=== PATIENT | female | born 1965 | race Caucasian/White ===

== ENCOUNTER 2019-03-06 15:38 | Inpatient (IN) | payer OTHER ==
[2019-03-06] VITALS: BP 112/57; RESP 20
[~2019-03-06] VITALS: Ht 162.6 cm; Wt 70.0 kg
[~2019-03-06 15:38] MED LIST: ALBU8.5H8 INH; ALPR2TAB PO; BUME0.5T2 PO; BUSP15TA3 ORAL; BUSP5TAB2 PO; DIPH50CA30 ORAL; GABA300C16 ORAL; HYDR-4011 PO; LISI-313 PO; METH5SOL3 PO; METO-335 PO; MIRT15TA5 PO; MIRT30TA5 ORAL; NICO-546 TRANSDERM; OLAN5TAB5 PO; SPIR25TA PO
[2019-03-06] MEDS ORDERED: IPRATROPIUM (NEB) 0.5 MG/2.5 ML AMP INH STA (15:46)
[2019-03-06] MEDS ORDERED: predniSONE 20 MG TAB PO STA (15:46)
[2019-03-06] MEDS ORDERED: ALBUTEROL 0.083% (NEB) 2.5 MG/3 ML AMP INH STA (15:46)
[2019-03-06] MEDS ORDERED: SODIUM CHLORIDE 0.9% 1L BAG IV* STA ×2 (17:22→17:51)
[2019-03-06] MEDS ORDERED: CEFEPIME 2GM/50 ML (PMX) 50 ML IVPB STA (17:51)
[2019-03-06] MEDS ORDERED: VANCOMYCIN 1 GM (PMX) 250 ML IVPB ONE (18:00)
[2019-03-06] MEDS ORDERED: NACL 0.9% 3 ML SYG IV SCH (19:00)
[2019-03-06] MEDS ORDERED: ONDANSETRON 4 MG INJ IV PRN ×2 (19:00)
[2019-03-06] MEDS ORDERED: ACETAMINOPHEN 325 MG TAB PO PRN (19:00)
[2019-03-06] MEDS: SOD CHLORIDE 0.9% 1,000 ML IV SCH (19:06)
[2019-03-06] MEDS ORDERED: CEFEPIME 1GM/50 ML (PMX) 50 ML IVPB SCH (21:00)
[2019-03-06] MEDS: FAMOTIDINE 20 MG TAB PO SCH (23:02)
[2019-03-07 00:15] VITALS: Ht 162.6 cm; Wt 70.0 kg
[2019-03-07] MEDS ORDERED: PENDING SANTYL ORDER FOR WOUND CARE XX PRN (01:00)
[2019-03-07] MEDS: SOD CHLORIDE 0.9% 1,000 ML IV SCH (03:43)
[2019-03-07 04:34] VITALS: BP 112/61; RESP 18
[2019-03-07] MEDS: CEFEPIME 1GM/50 ML (PMX) 50 ML IVPB SCH ×2 (06:09→20:10)
[2019-03-07 07:14] VITALS: BP 116/58; PULSE 91; RESP 20
[2019-03-07] MEDS ORDERED: SOD CHLORIDE 0.9% 250 ML IV* ONE (08:31)
[2019-03-07] MEDS: FAMOTIDINE 20 MG TAB PO SCH ×2 (09:00→20:10)
[2019-03-07] MEDS: ALBUTEROL 0.083% (NEB) 2.5 MG/3 ML AMP HHN PRN (09:08)
[2019-03-07] MEDS: METHYLPREDNISOLONE 125 MG INJ IV SCH (09:32)
[2019-03-07] MEDS: ENOXAPARIN 30 MG/0.3 ML SYG SC SCH (09:33)
[2019-03-07] MEDS ORDERED: FUROSEMIDE 40 MG INJ IV ONE (11:00)
[2019-03-07 11:10] VITALS: BP 117/57; PULSE 88; RESP 21
[2019-03-07 15:10] VITALS: BP 119/57; PULSE 89; RESP 19
[2019-03-07 19:10] VITALS: BP 111/57; PULSE 89; RESP 20
[2019-03-08] VITALS (7 sets, daily range): BP systolic 114–135; BP diastolic 52–69; PULSE 85–99; RESP 17–19
[2019-03-08] MEDS: ALBUTEROL 0.083% (NEB) 2.5 MG/3 ML AMP HHN PRN ×2 (00:26→08:45)
[2019-03-08] MEDS: CEFEPIME 1GM/50 ML (PMX) 50 ML IVPB SCH ×2 (08:40→21:14)
[2019-03-08] MEDS: FAMOTIDINE 20 MG TAB PO SCH ×2 (08:40→21:14)
[2019-03-08] MEDS: METHYLPREDNISOLONE 125 MG INJ IV SCH (08:40)
[2019-03-08] MEDS: ENOXAPARIN 30 MG/0.3 ML SYG SC SCH (09:21)
[2019-03-08] MEDS ORDERED: VANCOMYCIN IV PER PHARMACY XX SCH (18:30)
[2019-03-08] MEDS ORDERED: VANCOMYCIN 1.5 GM/NS 250 ML 250 ML IVPB ONE (19:30)
[2019-03-08] MEDS: ALBUTEROL/IPRATROPIUM (NEB) 3 ML AMP HHN SCH (20:13)
[2019-03-08] MEDS: SILVER SULFADIAZINE 1% 25 GM CR TOP SCH (22:43)
[2019-03-08] MEDS: COLLAGENASE 5 GM (UD JAR) TOP SCH (22:43)
[2019-03-09] VITALS (9 sets, daily range): BP systolic 108–150; BP diastolic 53–80; PULSE 90–120; RESP 14–28
[2019-03-09] MEDS: GENTAMICIN 60 MG in SOD CHLORIDE 0.9% 50 ML IVPB SCH ×2 (02:15→22:29)
[2019-03-09] MEDS: COLLAGENASE 5 GM (UD JAR) TOP SCH (09:08)
[2019-03-09] MEDS: ENOXAPARIN 30 MG/0.3 ML SYG SC SCH (09:08)
[2019-03-09] MEDS: SILVER SULFADIAZINE 1% 25 GM CR TOP SCH (09:09)
[2019-03-09] MEDS: ALBUTEROL/IPRATROPIUM (NEB) 3 ML AMP HHN SCH ×3 (10:00→20:08)
[2019-03-09] MEDS ORDERED: FUROSEMIDE 20 MG INJ ONE (12:00)
[2019-03-09] MEDS ORDERED: GENTAMICIN IV PER PHARMACY XX SCH (16:00)
[2019-03-09] MEDS ORDERED: FUROSEMIDE 40 MG INJ IM ONE (16:30)
[2019-03-09] MEDS ORDERED: FUROSEMIDE 40 MG INJ IV ONE (16:30)
[2019-03-09] MEDS: ALBUTEROL 0.083% (NEB) 2.5 MG/3 ML AMP HHN PRN (16:43)
[2019-03-09] MEDS: METHYLPREDNISOLONE 125 MG INJ IV SCH (16:44)
[2019-03-09] MEDS: CEFEPIME 1GM/50 ML (PMX) 50 ML IVPB SCH ×2 (16:56→22:27)
[2019-03-09] MEDS ORDERED: BISACODYL (EC) 5 MG TAB PO ONE ×2 (17:00→20:00)
[2019-03-09] MEDS: PEG/ELECTROLYTES 4L BTL PO ONE ×2 (17:00→21:00)
[2019-03-09] MEDS: VANCOMYCIN 750 MG (PMX) 250 ML IVPB SCH (17:36)
[2019-03-09] MEDS: PANTOPRAZOLE 40 MG INJ IV SCH (17:38)
[2019-03-09] MEDS ORDERED: METHADONE (1 MG/ML 5 ML PO UD SYG) PO SCH (18:30)
[2019-03-09] MEDS: NICOTINE (21 MG/24 HR) PATCH TRANSDERM SCH (19:21)
[2019-03-09] MEDS: morphine 2 MG INJ IV PRN (19:21)
[2019-03-09] MEDS ORDERED: VANCOMYCIN 1 GM 250 ML IVPB SCH (20:00)
[2019-03-09] MEDS ORDERED: PEG/ELECTROLYTES 4L BTL PO ONE (20:00)
[2019-03-10] VITALS (8 sets, daily range): BP systolic 112–145; BP diastolic 56–72; PULSE 90–104; RESP 16–20
[2019-03-10] MEDS: GENTAMICIN 60 MG in SOD CHLORIDE 0.9% 50 ML IVPB SCH ×4 (02:15→15:37)
[2019-03-10] MEDS: VANCOMYCIN 750 MG (PMX) 250 ML IVPB SCH ×2 (04:16→17:22)
[2019-03-10] MEDS: PANTOPRAZOLE 40 MG INJ IV SCH ×2 (06:03→17:20)
[2019-03-10] MEDS: ENOXAPARIN 30 MG/0.3 ML SYG SC SCH (09:00)
[2019-03-10] MEDS: morphine 2 MG INJ IV PRN (10:12)
[2019-03-10] MEDS: ALBUTEROL/IPRATROPIUM (NEB) 3 ML AMP HHN SCH ×3 (10:12→20:00)
[2019-03-10] MEDS: METHYLPREDNISOLONE 125 MG INJ IV SCH (10:12)
[2019-03-10] MEDS: SILVER SULFADIAZINE 1% 25 GM CR TOP SCH (10:17)
[2019-03-10] MEDS: NICOTINE (21 MG/24 HR) PATCH TRANSDERM SCH (10:17)
[2019-03-10] MEDS: COLLAGENASE 5 GM (UD JAR) TOP SCH (10:17)
[2019-03-10] MEDS: CEFEPIME 1GM/50 ML (PMX) 50 ML IVPB SCH ×2 (10:44→20:18)
[2019-03-10] MEDS ORDERED: LIDOCAINE 2% (SDV) 5 ML INJ ONE (13:02)
[2019-03-10] MEDS ORDERED: PROPOFOL 20 ML ONE ×2 (13:02→13:37)
[2019-03-10] MEDS ORDERED: FENTAnyl 50 MCG/ML VIAL ONE (13:03)
[2019-03-10] MEDS ORDERED: ONDANSETRON 4 MG INJ IV PRN (13:30)
[2019-03-10] MEDS: METHADONE 1 MG/ML (ORAL SOLN) PO SCH (17:14)
[2019-03-10] MEDS: ALBUTEROL 0.083% (NEB) 2.5 MG/3 ML AMP HHN PRN (19:29)
[2019-03-10] MEDS ORDERED: GENTAMICIN 60 MG in SOD CHLORIDE 0.9% 50 ML IVPB SCH (22:00)
[2019-03-11] VITALS (7 sets, daily range): BP systolic 115–172; BP diastolic 56–87; PULSE 95–101; RESP 18–20
[2019-03-11] MEDS: GENTAMICIN 60 MG in SOD CHLORIDE 0.9% 50 ML IVPB SCH ×2 (01:17→14:22)
[2019-03-11] MEDS: VANCOMYCIN 750 MG (PMX) 250 ML IVPB SCH ×2 (03:22→15:56)
[2019-03-11] MEDS: ALBUTEROL 0.083% (NEB) 2.5 MG/3 ML AMP HHN PRN ×2 (03:33→12:04)
[2019-03-11] MEDS ORDERED: FUROSEMIDE 20 MG INJ ONE (03:52)
[2019-03-11] MEDS ORDERED: FUROSEMIDE 20 MG INJ IV ONE (04:00)
[2019-03-11] MEDS: PANTOPRAZOLE 40 MG INJ IV SCH ×2 (06:05→17:57)
[2019-03-11] MEDS: ALBUTEROL/IPRATROPIUM (NEB) 3 ML AMP HHN SCH ×3 (08:01→19:58)
[2019-03-11] MEDS ORDERED: METOPROLOL (XL) 25 MG TAB PO SCH (09:00)
[2019-03-11] MEDS: METHYLPREDNISOLONE 125 MG INJ IV SCH (09:50)
[2019-03-11] MEDS: NICOTINE (21 MG/24 HR) PATCH TRANSDERM SCH (09:50)
[2019-03-11] MEDS: CEFEPIME 1GM/50 ML (PMX) 50 ML IVPB SCH ×2 (09:50→20:23)
[2019-03-11] MEDS: LISINOPRIL 5 MG TAB PO SCH (09:51)
[2019-03-11] MEDS: COLLAGENASE 5 GM (UD JAR) TOP SCH (09:53)
[2019-03-11] MEDS: ENOXAPARIN 30 MG/0.3 ML SYG SC SCH (10:02)
[2019-03-11] MEDS: SILVER SULFADIAZINE 1% 25 GM CR TOP SCH (11:22)
[2019-03-11] MEDS: METHADONE 1 MG/ML (ORAL SOLN) PO SCH (11:23)
[2019-03-11] MEDS: METOPROLOL (XL) 25 MG TAB PO SCH ×2 (20:16→20:23)
[2019-03-12] VITALS: BP 121/68; PULSE 98; RESP 19
[2019-03-12] MEDS: GENTAMICIN 60 MG in SOD CHLORIDE 0.9% 50 ML IVPB SCH (01:18)
[2019-03-12] MEDS: ALBUTEROL 0.083% (NEB) 2.5 MG/3 ML AMP HHN PRN (01:25)
[2019-03-12] MEDS: VANCOMYCIN 750 MG (PMX) 250 ML IVPB SCH (03:23)
[2019-03-12 04:00] VITALS: BP 113/67; PULSE 83; RESP 20
[2019-03-12] MEDS: PANTOPRAZOLE 40 MG INJ IV SCH ×2 (05:04→17:37)
[2019-03-12] MEDS: ALBUTEROL/IPRATROPIUM (NEB) 3 ML AMP HHN SCH ×3 (07:46→19:49)
[2019-03-12 07:49] VITALS: BP 120/60; PULSE 88; RESP 18
[2019-03-12] MEDS: CEFEPIME 1GM/50 ML (PMX) 50 ML IVPB SCH ×2 (08:50→21:54)
[2019-03-12] MEDS: SILVER SULFADIAZINE 1% 25 GM CR TOP SCH (08:50)
[2019-03-12] MEDS: COLLAGENASE 5 GM (UD JAR) TOP SCH (08:51)
[2019-03-12] MEDS: METHYLPREDNISOLONE 125 MG INJ IV SCH (08:51)
[2019-03-12] MEDS: NICOTINE (21 MG/24 HR) PATCH TRANSDERM SCH (08:51)
[2019-03-12] MEDS: METOPROLOL (XL) 25 MG TAB PO SCH ×2 (08:52→21:00)
[2019-03-12] MEDS: LISINOPRIL 5 MG TAB PO SCH (08:53)
[2019-03-12] MEDS: ENOXAPARIN 30 MG/0.3 ML SYG SC SCH (08:59)
[2019-03-12] MEDS: METHADONE 1 MG/ML (ORAL SOLN) PO SCH (10:25)
[2019-03-12 11:54] VITALS: BP 122/67; PULSE 64; RESP 18
[2019-03-12 15:36] VITALS: BP 107/61; PULSE 81; RESP 17
[2019-03-12] MEDS: VANCOMYCIN 500 MG (PMX) 100 ML IVPB SCH (17:37)
[2019-03-12 20:00] VITALS: BP 104/64; PULSE 73; RESP 18
[2019-03-13] VITALS: BP 110/68; PULSE 76; RESP 18
[2019-03-13 04:00] VITALS: BP 106/64; PULSE 70; RESP 18
[2019-03-13] MEDS: VANCOMYCIN 500 MG (PMX) 100 ML IVPB SCH ×2 (06:00→18:00)
[2019-03-13] MEDS: PANTOPRAZOLE 40 MG INJ IV SCH ×2 (06:00→17:17)
[2019-03-13 07:42] VITALS: BP 86/49; PULSE 71; RESP 18
[2019-03-13] MEDS: ALBUTEROL/IPRATROPIUM (NEB) 3 ML AMP HHN SCH ×3 (08:30→20:38)
[2019-03-13] MEDS: LISINOPRIL 5 MG TAB PO SCH (09:00)
[2019-03-13] MEDS: METOPROLOL (XL) 25 MG TAB PO SCH ×2 (09:00→21:00)
[2019-03-13] MEDS: CEFEPIME 1GM/50 ML (PMX) 50 ML IVPB SCH ×2 (09:00→21:00)
[2019-03-13] MEDS: METHYLPREDNISOLONE 125 MG INJ IV SCH (09:00)
[2019-03-13] MEDS: COLLAGENASE 5 GM (UD JAR) TOP SCH (09:21)
[2019-03-13] MEDS: SILVER SULFADIAZINE 1% 25 GM CR TOP SCH (09:22)
[2019-03-13] MEDS: NICOTINE (21 MG/24 HR) PATCH TRANSDERM SCH (09:37)
[2019-03-13] MEDS: ENOXAPARIN 30 MG/0.3 ML SYG SC SCH (09:39)
[2019-03-13] MEDS ORDERED: NA POLYST SULFON 15 GM/60 ML BTL PO ONE ×2 (11:00→14:00)
[2019-03-13 11:26] VITALS: BP 113/52; PULSE 70; RESP 20
[2019-03-13] MEDS ORDERED: GENTAMICIN 60 MG in SOD CHLORIDE 0.9% 50 ML IVPB SCH (12:00)
[2019-03-13] MEDS: METHADONE 1 MG/ML (ORAL SOLN) PO SCH (13:25)
[2019-03-13 15:35] VITALS: BP 100/53; PULSE 68; RESP 22
[2019-03-13 20:03] VITALS: BP 93/50; PULSE 71; RESP 18
[2019-03-13] MEDS: ENOXAPARIN 80 MG/0.8 ML SYG SC SCH (21:09)
[2019-03-14 00:12] VITALS: BP 98/54; PULSE 69; RESP 17
[2019-03-14 05:28] VITALS: BP 99/54; PULSE 67; RESP 17
[2019-03-14] MEDS: PANTOPRAZOLE 40 MG INJ IV SCH ×2 (05:42→18:27)
[2019-03-14] MEDS: VANCOMYCIN 500 MG (PMX) 100 ML IVPB SCH (05:42)
[2019-03-14 07:41] VITALS: BP 105/56; PULSE 68; RESP 18
[2019-03-14] MEDS: COLLAGENASE 5 GM (UD JAR) TOP SCH (08:55)
[2019-03-14] MEDS: CEFEPIME 1GM/50 ML (PMX) 50 ML IVPB SCH (08:55)
[2019-03-14] MEDS: METOPROLOL (XL) 25 MG TAB PO SCH ×2 (08:55→21:00)
[2019-03-14] MEDS: NICOTINE (21 MG/24 HR) PATCH TRANSDERM SCH (08:55)
[2019-03-14] MEDS: LISINOPRIL 5 MG TAB PO SCH (08:56)
[2019-03-14] MEDS: METHYLPREDNISOLONE 125 MG INJ IV SCH (08:56)
[2019-03-14] MEDS: SILVER SULFADIAZINE 1% 25 GM CR TOP SCH (08:57)
[2019-03-14] MEDS: ALBUTEROL/IPRATROPIUM (NEB) 3 ML AMP HHN SCH ×3 (09:00→20:50)
[2019-03-14] MEDS: ENOXAPARIN 80 MG/0.8 ML SYG SC SCH ×2 (09:15→20:31)
[2019-03-14] MEDS: METHADONE 10 MG TAB PO SCH (09:40)
[2019-03-14 11:20] VITALS: BP 110/59; PULSE 78; RESP 18
[2019-03-14 16:00] VITALS: BP 118/62; PULSE 73
[2019-03-14] MEDS: CEFTRIAXONE 1 GM/50 ML (PMX) 50 ML IVPB SCH (18:27)
[2019-03-14 20:11] VITALS: BP 98/52; PULSE 66; RESP 17
[2019-03-15 00:10] VITALS: BP 101/76; PULSE 62; RESP 17
[2019-03-15 04:00] VITALS: BP 103/54; PULSE 65; RESP 16
[2019-03-15] MEDS: PANTOPRAZOLE 40 MG INJ IV SCH ×2 (05:02→18:20)
[2019-03-15] MEDS: ALBUTEROL/IPRATROPIUM (NEB) 3 ML AMP HHN SCH ×3 (07:38→19:31)
[2019-03-15 08:19] VITALS: BP 117/56; PULSE 56; RESP 18
[2019-03-15] MEDS: NICOTINE (21 MG/24 HR) PATCH TRANSDERM SCH (08:38)
[2019-03-15] MEDS: COLLAGENASE 5 GM (UD JAR) TOP SCH (08:39)
[2019-03-15] MEDS: METHYLPREDNISOLONE 125 MG INJ IV SCH (08:39)
[2019-03-15] MEDS: METHADONE 10 MG TAB PO SCH (08:40)
[2019-03-15] MEDS: METOPROLOL (XL) 25 MG TAB PO SCH ×2 (08:40→20:35)
[2019-03-15] MEDS: SILVER SULFADIAZINE 1% 25 GM CR TOP SCH (08:41)
[2019-03-15] MEDS: ENOXAPARIN 80 MG/0.8 ML SYG SC SCH ×2 (08:51→20:18)
[2019-03-15 11:49] VITALS: BP 119/58; PULSE 68; RESP 18
[2019-03-15 16:20] VITALS: BP 95/58; PULSE 71; RESP 20
[2019-03-15] MEDS: CEFTRIAXONE 1 GM/50 ML (PMX) 50 ML IVPB SCH (18:20)
[2019-03-15 20:00] VITALS: BP 100/54; PULSE 71; RESP 18
[2019-03-16] VITALS: BP 104/49; PULSE 71; RESP 19
[2019-03-16] MEDS: PANTOPRAZOLE 40 MG INJ IV SCH ×2 (05:05→17:53)
[2019-03-16 07:38] VITALS: BP 99/51; PULSE 70; RESP 20
[2019-03-16] MEDS: ALBUTEROL/IPRATROPIUM (NEB) 3 ML AMP HHN SCH ×3 (08:31→21:08)
[2019-03-16] MEDS: METOPROLOL (XL) 25 MG TAB PO SCH ×2 (09:00→21:17)
[2019-03-16] MEDS: METHADONE 10 MG TAB PO SCH (09:29)
[2019-03-16] MEDS: METHYLPREDNISOLONE 125 MG INJ IV SCH (09:29)
[2019-03-16] MEDS: NICOTINE (21 MG/24 HR) PATCH TRANSDERM SCH (09:31)
[2019-03-16] MEDS: COLLAGENASE 5 GM (UD JAR) TOP SCH (09:32)
[2019-03-16] MEDS: ENOXAPARIN 80 MG/0.8 ML SYG SC SCH ×2 (11:03→21:39)
[2019-03-16 11:14] VITALS: BP 111/54; PULSE 74; RESP 20
[2019-03-16] MEDS: SOD FERRIC GLUC COMPLX 125 MG in SOD CHLORIDE 0.9% 100 ML IVPB SCH (13:21)
[2019-03-16 15:42] VITALS: BP 118/54; PULSE 63; RESP 20
[2019-03-16] MEDS: CEFTRIAXONE 1 GM/50 ML (PMX) 50 ML IVPB SCH (17:53)
[2019-03-16] MEDS: SILVER SULFADIAZINE 1% 25 GM CR TOP SCH (17:54)
[2019-03-16 23:47] VITALS: BP 116/58; PULSE 79; RESP 20
[2019-03-17] MEDS: 1/2 NS + KCL 20 MEQ 1,000 ML IV SCH ×2 (02:42→17:05)
[2019-03-17] MEDS: ALBUTEROL 0.083% (NEB) 2.5 MG/3 ML AMP HHN PRN (03:06)
[2019-03-17 04:32] VITALS: BP 117/55; PULSE 71; RESP 20
[2019-03-17] MEDS: PANTOPRAZOLE 40 MG INJ IV SCH ×2 (06:18→17:04)
[2019-03-17 07:18] VITALS: BP 110/55; PULSE 69; RESP 20
[2019-03-17] MEDS: METHADONE 10 MG TAB PO SCH (08:54)
[2019-03-17] MEDS: NICOTINE (21 MG/24 HR) PATCH TRANSDERM SCH (08:55)
[2019-03-17] MEDS: METHYLPREDNISOLONE 40 MG INJ IV SCH (08:55)
[2019-03-17] MEDS: SILVER SULFADIAZINE 1% 25 GM CR TOP SCH (08:56)
[2019-03-17] MEDS: METOPROLOL (XL) 25 MG TAB PO SCH ×2 (08:56→21:00)
[2019-03-17] MEDS: COLLAGENASE 5 GM (UD JAR) TOP SCH (08:56)
[2019-03-17] MEDS: ENOXAPARIN 80 MG/0.8 ML SYG SC SCH (09:09)
[2019-03-17] MEDS: ALBUTEROL/IPRATROPIUM (NEB) 3 ML AMP HHN SCH ×3 (10:30→20:54)
[2019-03-17 10:59] VITALS: BP 113/53; PULSE 76; RESP 20
[2019-03-17] MEDS: SOD FERRIC GLUC COMPLX 125 MG in SOD CHLORIDE 0.9% 100 ML IVPB SCH (13:15)
[2019-03-17] MEDS: CEFTRIAXONE 1 GM/50 ML (PMX) 50 ML IVPB SCH (15:44)
[2019-03-17 15:57] VITALS: BP 139/64; PULSE 78; RESP 20
[2019-03-17] MEDS: PHYTONADIONE (1 MG/ML PO SYG) PO SCH (19:04)
[2019-03-17 20:00] VITALS: BP 123/57; PULSE 81; RESP 20
[2019-03-18] VITALS: BP 110/59; PULSE 77; RESP 19
[2019-03-18] MEDS: ENOXAPARIN 80 MG/0.8 ML SYG SC SCH ×2 (00:35→10:05)
[2019-03-18] MEDS: ALBUTEROL 0.083% (NEB) 2.5 MG/3 ML AMP HHN PRN (01:16)
[2019-03-18 04:00] VITALS: BP 104/53; PULSE 80; RESP 18
[2019-03-18] MEDS: PANTOPRAZOLE 40 MG INJ IV SCH ×2 (06:01→17:59)
[2019-03-18] MEDS: 1/2 NS + KCL 20 MEQ 1,000 ML IV SCH ×2 (06:01→10:12)
[2019-03-18] MEDS: METOPROLOL (XL) 25 MG TAB PO SCH ×2 (09:00→21:56)
[2019-03-18] MEDS: ALBUTEROL/IPRATROPIUM (NEB) 3 ML AMP HHN SCH ×3 (09:48→19:57)
[2019-03-18] MEDS: METHADONE 10 MG TAB PO SCH (10:00)
[2019-03-18] MEDS: NICOTINE (21 MG/24 HR) PATCH TRANSDERM SCH (10:01)
[2019-03-18] MEDS: COLLAGENASE 5 GM (UD JAR) TOP SCH (10:01)
[2019-03-18] MEDS: SILVER SULFADIAZINE 1% 25 GM CR TOP SCH (10:01)
[2019-03-18] MEDS: METHYLPREDNISOLONE 40 MG INJ IV SCH (10:01)
[2019-03-18] MEDS: PHYTONADIONE (1 MG/ML PO SYG) PO SCH (10:11)
[2019-03-18 11:24] VITALS: BP 110/45; PULSE 72; RESP 18
[2019-03-18] MEDS: SOD FERRIC GLUC COMPLX 125 MG in SOD CHLORIDE 0.9% 100 ML IVPB SCH (13:38)
[2019-03-18 15:12] VITALS: BP 131/62; PULSE 82; RESP 20
[2019-03-18] MEDS: CEFTRIAXONE 1 GM/50 ML (PMX) 50 ML IVPB SCH (16:46)
[2019-03-18 20:00] VITALS: BP 113/61; PULSE 76; RESP 19
[2019-03-19] VITALS (64 sets, daily range): BP systolic 99–152; BP diastolic 16–77; PULSE 60–80; RESP 9–25
[2019-03-19] MEDS: 1/2 NS + KCL 20 MEQ 1,000 ML IV SCH (01:48)
[2019-03-19] MEDS ORDERED: DEXTROSE 50% 50 ML SYRINGE ONE (04:09)
[2019-03-19] MEDS ORDERED: GLUCOSE GEL 15 GRAM TUBE ONE (04:12)
[2019-03-19] MEDS ORDERED: GLUCAGON 1 MG INJ ONE (04:13)
[2019-03-19] MEDS ORDERED: DEXTROSE 5%-0.45% NACL 1,000 ML IV SCH (05:00)
[2019-03-19] MEDS ORDERED: NA BICARBONATE 8.4% 50 ML SYG IV ONE ×2 (05:00→10:00)
[2019-03-19] MEDS ORDERED: NA BICARBONATE 8.4% 50 ML SYG ONE (05:06)
[2019-03-19] MEDS: PANTOPRAZOLE 40 MG INJ IV SCH ×2 (06:19→17:37)
[2019-03-19] MEDS: ALBUTEROL/IPRATROPIUM (NEB) 3 ML AMP HHN SCH ×3 (07:09→19:19)
[2019-03-19] MEDS ORDERED: SOD CHLORIDE 0.9% 2,100 ML IV ONE (08:00)
[2019-03-19] MEDS: METHADONE 10 MG TAB PO SCH (08:35)
[2019-03-19] MEDS: METOPROLOL (XL) 25 MG TAB PO SCH ×2 (08:35→20:00)
[2019-03-19] MEDS: SILVER SULFADIAZINE 1% 25 GM CR TOP SCH (08:35)
[2019-03-19] MEDS: PHYTONADIONE (1 MG/ML PO SYG) PO SCH (08:36)
[2019-03-19] MEDS ORDERED: ENOXAPARIN 80 MG/0.8 ML SYG SC SCH (09:00)
[2019-03-19] MEDS: METHYLPREDNISOLONE 40 MG INJ IV SCH (09:02)
[2019-03-19] MEDS: NICOTINE (21 MG/24 HR) PATCH TRANSDERM SCH (09:03)
[2019-03-19] MEDS ORDERED: SODIUM BICARBONATE (IV ADD) 100 MEQ in DEXTROSE 5%-0.45% NACL 1,000 ML IV SCH (09:35)
[2019-03-19] MEDS: COLLAGENASE 5 GM (UD JAR) TOP SCH (09:48)
[2019-03-19] MEDS ORDERED: NORepinephrine 8MG/250 ML (PMX 250 ML ONE (10:07)
[2019-03-19] MEDS ORDERED: NORepinephrine 8MG/250 ML (PMX 250 ML IV SCH (10:30)
[2019-03-19] MEDS ORDERED: VANCOMYCIN IV PER PHARMACY XX SCH (12:00)
[2019-03-19] MEDS: SOD FERRIC GLUC COMPLX 125 MG in SOD CHLORIDE 0.9% 100 ML IVPB SCH (12:11)
[2019-03-19] MEDS: MEROPENEM 500MG/50 ML (PMX) 50 ML IVPB SCH ×2 (12:11→20:13)
[2019-03-19] MEDS ORDERED: VANCOMYCIN 1.5 GM/NS 250 ML 250 ML IVPB SCH (13:00)
[2019-03-19] MEDS ORDERED: FUROSEMIDE 40 MG INJ IM ONE (17:00)
[2019-03-19] MEDS ORDERED: SODIUM BICARBONATE (IV ADD) 150 MEQ in DEXTROSE 5% 1,000 ML IV SCH (17:00)
[2019-03-19] MEDS: SODIUM BICARBONATE IN D5W 1,000 ML IV SCH (18:50)
[2019-03-20] VITALS (100 sets, daily range): BP systolic 40–207; BP diastolic 13–99; PULSE 60–112; RESP 0–33
[2019-03-20] MEDS: ALBUTEROL/IPRATROPIUM (NEB) 3 ML AMP HHN SCH ×4 (00:51→19:43)
[2019-03-20] MEDS ORDERED: FUROSEMIDE 40 MG INJ ONE (01:34)
[2019-03-20] MEDS ORDERED: FUROSEMIDE 40 MG INJ IV ONE (02:00)
[2019-03-20] MEDS: SODIUM BICARBONATE IN D5W 1,000 ML IV SCH ×2 (05:02→13:32)
[2019-03-20] MEDS: PANTOPRAZOLE 40 MG INJ IV SCH ×2 (05:02→17:43)
[2019-03-20] MEDS: METHADONE 10 MG TAB PO SCH ×2 (09:00→14:55)
[2019-03-20] MEDS: METOPROLOL (XL) 25 MG TAB PO SCH ×2 (09:00→21:00)
[2019-03-20] MEDS: MEROPENEM 500MG/50 ML (PMX) 50 ML IVPB SCH ×2 (09:13→21:34)
[2019-03-20] MEDS: SILVER SULFADIAZINE 1% 25 GM CR TOP SCH (09:14)
[2019-03-20] MEDS: METHYLPREDNISOLONE 40 MG INJ IV SCH (09:14)
[2019-03-20] MEDS: COLLAGENASE 5 GM (UD JAR) TOP SCH (09:14)
[2019-03-20] MEDS: NICOTINE (21 MG/24 HR) PATCH TRANSDERM SCH (09:14)
[2019-03-20] MEDS ORDERED: FUROSEMIDE 20 MG INJ IV ONE (09:30)
[2019-03-20] MEDS: SOD FERRIC GLUC COMPLX 125 MG in SOD CHLORIDE 0.9% 100 ML IVPB SCH (13:30)
[2019-03-21] VITALS (63 sets, daily range): BP systolic 117–172; BP diastolic 36–72; PULSE 57–79; RESP 5–23
[2019-03-21] MEDS: SODIUM BICARBONATE IN D5W 1,000 ML IV SCH ×3 (00:16→20:01)
[2019-03-21] MEDS: ALBUTEROL/IPRATROPIUM (NEB) 3 ML AMP HHN SCH ×4 (02:02→19:28)
[2019-03-21] MEDS: PANTOPRAZOLE 40 MG INJ IV SCH ×2 (06:30→17:11)
[2019-03-21] MEDS: MEROPENEM 500MG/50 ML (PMX) 50 ML IVPB SCH ×2 (09:02→20:17)
[2019-03-21] MEDS: METHYLPREDNISOLONE 40 MG INJ IV SCH (09:02)
[2019-03-21] MEDS: COLLAGENASE 5 GM (UD JAR) TOP SCH (09:03)
[2019-03-21] MEDS: METHADONE 10 MG TAB PO SCH (09:03)
[2019-03-21] MEDS: NICOTINE (21 MG/24 HR) PATCH TRANSDERM SCH (09:04)
[2019-03-21] MEDS: METOPROLOL (XL) 25 MG TAB PO SCH ×2 (09:04→20:10)
[2019-03-21] MEDS: SILVER SULFADIAZINE 1% 25 GM CR TOP SCH (09:07)
[2019-03-21] MEDS ORDERED: VANCOMYCIN 1 GM 250 ML IVPB SCH (13:00)
[2019-03-21] MEDS ORDERED: SODIUM BICARBONATE IN D5W 1,000 ML IV SCH (23:30)
[2019-03-22] VITALS (26 sets, daily range): BP systolic 82–152; BP diastolic 45–74; PULSE 58–72; RESP 0–31
[2019-03-22] MEDS: ALBUTEROL/IPRATROPIUM (NEB) 3 ML AMP HHN SCH ×4 (02:07→20:22)
[2019-03-22] MEDS: PANTOPRAZOLE 40 MG INJ IV SCH ×2 (05:56→18:04)
[2019-03-22] MEDS ORDERED: SODIUM BICARBONATE IN D5W 1,000 ML IV SCH ×2 (06:00→16:00)
[2019-03-22] MEDS ORDERED: FUROSEMIDE 40 MG INJ IV ONE (09:00)
[2019-03-22] MEDS ORDERED: VANCOMYCIN 1 GM 250 ML IVPB SCH (09:00)
[2019-03-22] MEDS: COLLAGENASE 5 GM (UD JAR) TOP SCH (10:13)
[2019-03-22] MEDS: NICOTINE (21 MG/24 HR) PATCH TRANSDERM SCH (10:14)
[2019-03-22] MEDS: POLYETHYLENE GLYCOL 17 GM PACKET PO SCH (10:14)
[2019-03-22] MEDS: LUBIPROSTONE 24 MCG CAP PO SCH ×2 (10:15→21:34)
[2019-03-22] MEDS: METOPROLOL (XL) 25 MG TAB PO SCH ×2 (10:16→21:00)
[2019-03-22] MEDS: MEROPENEM 500MG/50 ML (PMX) 50 ML IVPB SCH ×2 (10:16→21:33)
[2019-03-22] MEDS: METHYLPREDNISOLONE 40 MG INJ IV SCH (10:25)
[2019-03-22] MEDS: SILVER SULFADIAZINE 1% 25 GM CR TOP SCH (10:25)
[2019-03-22] MEDS: METHADONE 10 MG TAB PO SCH (11:47)
[2019-03-22] MEDS ORDERED: SODIUM BICARBONATE (IV ADD) 150 MEQ in DEXTROSE 5% 850 ML IV SCH (16:00)
[2019-03-22] MEDS: morphine 2 MG INJ IV PRN (21:51)
[2019-03-23] VITALS (13 sets, daily range): BP systolic 94–138; BP diastolic 44–68; PULSE 60–102; RESP 15–33
[2019-03-23] MEDS: ALBUTEROL/IPRATROPIUM (NEB) 3 ML AMP HHN SCH ×4 (01:57→19:59)
[2019-03-23] MEDS: PANTOPRAZOLE 40 MG INJ IV SCH ×2 (05:29→18:21)
[2019-03-23] MEDS: POLYETHYLENE GLYCOL 17 GM PACKET PO SCH (09:17)
[2019-03-23] MEDS: NICOTINE (21 MG/24 HR) PATCH TRANSDERM SCH (09:18)
[2019-03-23] MEDS: COLLAGENASE 5 GM (UD JAR) TOP SCH (09:18)
[2019-03-23] MEDS: METHADONE 10 MG TAB PO SCH (09:19)
[2019-03-23] MEDS: METOPROLOL (XL) 25 MG TAB PO SCH ×2 (09:20→21:01)
[2019-03-23] MEDS: MEROPENEM 500MG/50 ML (PMX) 50 ML IVPB SCH ×2 (09:20→20:57)
[2019-03-23] MEDS: METHYLPREDNISOLONE 40 MG INJ IV SCH (09:20)
[2019-03-23] MEDS: FUROSEMIDE 40 MG INJ IV SCH ×2 (09:26→18:21)
[2019-03-23] MEDS: SILVER SULFADIAZINE 1% 25 GM CR TOP SCH (11:02)
[2019-03-23] MEDS: LUBIPROSTONE 24 MCG CAP PO SCH ×2 (11:02→20:58)
[2019-03-23] MEDS ORDERED: LIDOCAINE 1% (MPF) 5 ML VIAL ONE (15:48)
[2019-03-24] VITALS (12 sets, daily range): BP systolic 82–118; BP diastolic 46–66; PULSE 60–76; RESP 18–22
[2019-03-24] MEDS: ALBUTEROL/IPRATROPIUM (NEB) 3 ML AMP HHN SCH ×4 (01:55→19:36)
[2019-03-24] MEDS: FUROSEMIDE 40 MG INJ IV SCH ×2 (05:56→17:38)
[2019-03-24] MEDS: PANTOPRAZOLE 40 MG INJ IV SCH ×2 (05:56→17:38)
[2019-03-24] MEDS: LUBIPROSTONE 24 MCG CAP PO SCH ×2 (09:50→21:56)
[2019-03-24] MEDS: METHYLPREDNISOLONE 40 MG INJ IV SCH (10:11)
[2019-03-24] MEDS: COLLAGENASE 5 GM (UD JAR) TOP SCH (10:11)
[2019-03-24] MEDS: MEROPENEM 500MG/50 ML (PMX) 50 ML IVPB SCH ×2 (10:11→21:55)
[2019-03-24] MEDS: POLYETHYLENE GLYCOL 17 GM PACKET PO SCH (10:11)
[2019-03-24] MEDS: METOPROLOL (XL) 25 MG TAB PO SCH ×2 (10:12→21:00)
[2019-03-24] MEDS: NICOTINE (21 MG/24 HR) PATCH TRANSDERM SCH (10:13)
[2019-03-24] MEDS: SILVER SULFADIAZINE 1% 25 GM CR TOP SCH (10:13)
[2019-03-24] MEDS: METHADONE 10 MG TAB PO SCH (10:56)
[2019-03-25] VITALS (9 sets, daily range): BP systolic 98–124; BP diastolic 50–57; PULSE 64–84; RESP 18–22
[2019-03-25] MEDS: ALBUTEROL/IPRATROPIUM (NEB) 3 ML AMP HHN SCH ×4 (01:18→19:54)
[2019-03-25] MEDS: PANTOPRAZOLE 40 MG INJ IV SCH ×2 (06:22→17:14)
[2019-03-25] MEDS: FUROSEMIDE 40 MG INJ IV SCH ×2 (06:23→17:14)
[2019-03-25] MEDS: LUBIPROSTONE 24 MCG CAP PO SCH ×2 (08:13→21:17)
[2019-03-25] MEDS: METHADONE 10 MG TAB PO SCH (08:13)
[2019-03-25] MEDS: METOPROLOL (XL) 25 MG TAB PO SCH ×2 (08:14→21:17)
[2019-03-25] MEDS: METHYLPREDNISOLONE 40 MG INJ IV SCH (08:15)
[2019-03-25] MEDS: MEROPENEM 500MG/50 ML (PMX) 50 ML IVPB SCH (08:15)
[2019-03-25] MEDS: POLYETHYLENE GLYCOL 17 GM PACKET PO SCH (08:17)
[2019-03-25] MEDS: COLLAGENASE 5 GM (UD JAR) TOP SCH (08:18)
[2019-03-25] MEDS: NICOTINE (21 MG/24 HR) PATCH TRANSDERM SCH (08:18)
[2019-03-25] MEDS: SILVER SULFADIAZINE 1% 25 GM CR TOP SCH (08:22)
[2019-03-25] MEDS: CEFEPIME 1GM/50 ML (PMX) 50 ML IVPB SCH (21:46)
[2019-03-26] VITALS (8 sets, daily range): BP systolic 96–122; BP diastolic 50–58; PULSE 71–88; RESP 20
[2019-03-26] MEDS: ALBUTEROL/IPRATROPIUM (NEB) 3 ML AMP HHN SCH ×4 (01:32→20:55)
[2019-03-26] MEDS: PANTOPRAZOLE 40 MG INJ IV SCH ×2 (06:13→18:18)
[2019-03-26] MEDS: FUROSEMIDE 40 MG INJ IV SCH ×2 (06:29→18:28)
[2019-03-26] MEDS ORDERED: POTASSIUM CHLORIDE (SR) 20 MEQ TAB PO STA (08:08)
[2019-03-26] MEDS ORDERED: MAGNESIUM SULFATE 2 GM/50 ML 50 ML IVPB ONE (08:30)
[2019-03-26] MEDS: METOPROLOL (XL) 25 MG TAB PO SCH ×2 (09:00→21:00)
[2019-03-26] MEDS: METHADONE 10 MG TAB PO SCH (09:41)
[2019-03-26] MEDS: LUBIPROSTONE 24 MCG CAP PO SCH ×2 (09:41→21:11)
[2019-03-26] MEDS: COLLAGENASE 5 GM (UD JAR) TOP SCH (09:42)
[2019-03-26] MEDS: METHYLPREDNISOLONE 40 MG INJ IV SCH (09:43)
[2019-03-26] MEDS: POLYETHYLENE GLYCOL 17 GM PACKET PO SCH (09:43)
[2019-03-26] MEDS: SILVER SULFADIAZINE 1% 25 GM CR TOP SCH (09:43)
[2019-03-26] MEDS: NICOTINE (21 MG/24 HR) PATCH TRANSDERM SCH (09:44)
[2019-03-26] MEDS ORDERED: metroNIDAZOLE 500 MG TAB PO SCH (14:00)
[2019-03-26] MEDS ORDERED: VANCOMYCIN 1 GM 250 ML IVPB ONE (16:00)
[2019-03-26] MEDS: CEFEPIME 1GM/50 ML (PMX) 50 ML IVPB SCH (21:11)
[2019-03-27] VITALS (8 sets, daily range): BP systolic 91–118; BP diastolic 47–56; PULSE 70–87; RESP 16–20
[2019-03-27] MEDS: ALBUTEROL/IPRATROPIUM (NEB) 3 ML AMP HHN SCH ×4 (02:11→19:54)
[2019-03-27] MEDS: FUROSEMIDE 40 MG INJ IV SCH ×3 (05:34→17:30)
[2019-03-27] MEDS: PANTOPRAZOLE 40 MG INJ IV SCH ×2 (05:35→17:31)
[2019-03-27] MEDS: METOPROLOL (XL) 25 MG TAB PO SCH ×2 (09:00→21:01)
[2019-03-27] MEDS: SILVER SULFADIAZINE 1% 25 GM CR TOP SCH (09:00)
[2019-03-27] MEDS: POLYETHYLENE GLYCOL 17 GM PACKET PO SCH (09:13)
[2019-03-27] MEDS: LUBIPROSTONE 24 MCG CAP PO SCH ×2 (09:14→20:59)
[2019-03-27] MEDS: COLLAGENASE 5 GM (UD JAR) TOP SCH (09:14)
[2019-03-27] MEDS: METHYLPREDNISOLONE 40 MG INJ IV SCH (09:14)
[2019-03-27] MEDS: NICOTINE (21 MG/24 HR) PATCH TRANSDERM SCH (09:15)
[2019-03-27] MEDS: METHADONE 10 MG TAB PO SCH (09:22)
[2019-03-27] MEDS ORDERED: POTASSIUM CHLORIDE (SR) 20 MEQ TAB PO STA (16:22)
[2019-03-27] MEDS: CEFEPIME 1GM/50 ML (PMX) 50 ML IVPB SCH (20:59)
[2019-03-28] VITALS (9 sets, daily range): BP systolic 98–120; BP diastolic 50–58; PULSE 79–99; RESP 17–22
[2019-03-28] MEDS: ALBUTEROL/IPRATROPIUM (NEB) 3 ML AMP HHN SCH ×4 (01:15→19:55)
[2019-03-28] MEDS: PANTOPRAZOLE 40 MG INJ IV SCH ×2 (05:51→17:29)
[2019-03-28] MEDS: FUROSEMIDE 40 MG INJ IV SCH ×2 (05:52→17:30)
[2019-03-28] MEDS: COLLAGENASE 5 GM (UD JAR) TOP SCH (09:00)
[2019-03-28] MEDS: METOPROLOL (XL) 25 MG TAB PO SCH ×2 (09:00→22:02)
[2019-03-28] MEDS: POLYETHYLENE GLYCOL 17 GM PACKET PO SCH (09:00)
[2019-03-28] MEDS: LUBIPROSTONE 24 MCG CAP PO SCH ×2 (09:00→22:01)
[2019-03-28] MEDS: SILVER SULFADIAZINE 1% 25 GM CR TOP SCH (09:00)
[2019-03-28] MEDS: METHADONE 10 MG TAB PO SCH (09:00)
[2019-03-28] MEDS: METHYLPREDNISOLONE 40 MG INJ IV SCH (09:45)
[2019-03-28] MEDS: NICOTINE (21 MG/24 HR) PATCH TRANSDERM SCH (09:56)
[2019-03-28] MEDS: CEFEPIME 1GM/50 ML (PMX) 50 ML IVPB SCH (22:02)
[2019-03-29] VITALS (9 sets, daily range): BP systolic 93–121; BP diastolic 50–65; PULSE 69–82; RESP 17–20
[2019-03-29] MEDS: ALBUTEROL/IPRATROPIUM (NEB) 3 ML AMP HHN SCH ×4 (02:42→19:46)
[2019-03-29] MEDS: PANTOPRAZOLE 40 MG INJ IV SCH ×2 (05:40→17:17)
[2019-03-29] MEDS: FUROSEMIDE 40 MG INJ IV SCH ×2 (05:41→17:17)
[2019-03-29] MEDS ORDERED: POTASSIUM CHLORIDE (SR) 20 MEQ TAB PO STA (08:04)
[2019-03-29] MEDS: NICOTINE (21 MG/24 HR) PATCH TRANSDERM SCH (08:37)
[2019-03-29] MEDS: POLYETHYLENE GLYCOL 17 GM PACKET PO SCH (08:37)
[2019-03-29] MEDS: COLLAGENASE 5 GM (UD JAR) TOP SCH (08:37)
[2019-03-29] MEDS: METHADONE 10 MG TAB PO SCH (08:38)
[2019-03-29] MEDS: METHYLPREDNISOLONE 40 MG INJ IV SCH (08:38)
[2019-03-29] MEDS: LUBIPROSTONE 24 MCG CAP PO SCH ×2 (08:38→21:00)
[2019-03-29] MEDS: METOPROLOL (XL) 25 MG TAB PO SCH ×2 (08:39→20:15)
[2019-03-29] MEDS: SILVER SULFADIAZINE 1% 25 GM CR TOP SCH (08:40)
[2019-03-29] MEDS: CEFEPIME 1GM/50 ML (PMX) 50 ML IVPB SCH (20:15)
[2019-03-29] MEDS: ACETAMINOPHEN 325 MG TAB PO PRN (20:22)
[2019-03-30] VITALS (10 sets, daily range): BP systolic 93–119; BP diastolic 52–57; PULSE 69–109; RESP 16–20
[2019-03-30] MEDS: ALBUTEROL/IPRATROPIUM (NEB) 3 ML AMP HHN SCH ×4 (01:21→20:35)
[2019-03-30] MEDS: FUROSEMIDE 40 MG INJ IV SCH ×2 (06:00→06:05)
[2019-03-30] MEDS: PANTOPRAZOLE 40 MG INJ IV SCH ×2 (06:00→06:05)
[2019-03-30] MEDS ORDERED: POTASSIUM CHLORIDE (SR) 20 MEQ TAB PO STA (08:22)
[2019-03-30] MEDS: METHYLPREDNISOLONE 40 MG INJ IV SCH (08:57)
[2019-03-30] MEDS: COLLAGENASE 5 GM (UD JAR) TOP SCH (08:57)
[2019-03-30] MEDS: NICOTINE (21 MG/24 HR) PATCH TRANSDERM SCH (08:57)
[2019-03-30] MEDS: METOPROLOL (XL) 25 MG TAB PO SCH ×2 (08:58→20:44)
[2019-03-30] MEDS: POLYETHYLENE GLYCOL 17 GM PACKET PO SCH (08:59)
[2019-03-30] MEDS: METHADONE 10 MG TAB PO SCH (08:59)
[2019-03-30] MEDS: SILVER SULFADIAZINE 1% 25 GM CR TOP SCH (09:00)
[2019-03-30] MEDS: LUBIPROSTONE 24 MCG CAP PO SCH ×2 (09:00→20:39)
[2019-03-30] MEDS: ACETAZOLAMIDE 500 MG INJ IV SCH (10:23)
[2019-03-30] MEDS: PANTOPRAZOLE (EC) 40 MG TAB PO SCH (18:18)
[2019-03-30] MEDS: CEFEPIME 1GM/50 ML (PMX) 50 ML IVPB SCH (20:44)
[2019-03-31] VITALS (9 sets, daily range): BP systolic 91–109; BP diastolic 50–59; PULSE 67–91; RESP 17–22
[2019-03-31] MEDS: ALBUTEROL/IPRATROPIUM (NEB) 3 ML AMP HHN SCH ×4 (01:23→19:56)
[2019-03-31] MEDS: PANTOPRAZOLE (EC) 40 MG TAB PO SCH ×2 (05:43→16:44)
[2019-03-31] MEDS ORDERED: POTASSIUM CHLORIDE (SR) 20 MEQ TAB PO STA (08:19)
[2019-03-31] MEDS: ACETAZOLAMIDE 500 MG INJ IV SCH (08:19)
[2019-03-31] MEDS: NICOTINE (21 MG/24 HR) PATCH TRANSDERM SCH (08:19)
[2019-03-31] MEDS: POLYETHYLENE GLYCOL 17 GM PACKET PO SCH (08:19)
[2019-03-31] MEDS: METHYLPREDNISOLONE 40 MG INJ IV SCH (08:19)
[2019-03-31] MEDS: METHADONE 10 MG TAB PO SCH (08:19)
[2019-03-31] MEDS: LUBIPROSTONE 24 MCG CAP PO SCH ×2 (08:20→20:08)
[2019-03-31] MEDS: METOPROLOL (XL) 25 MG TAB PO SCH ×2 (08:20→20:09)
[2019-03-31] MEDS: COLLAGENASE 5 GM (UD JAR) TOP SCH (08:20)
[2019-03-31] MEDS: SILVER SULFADIAZINE 1% 25 GM CR TOP SCH (08:20)
[2019-03-31] MEDS ORDERED: MAGNESIUM SULFATE 2 GM/50 ML 50 ML IVPB ONE (08:30)
[2019-03-31] MEDS: CEFTRIAXONE 1 GM/50 ML (PMX) 50 ML IVPB SCH (12:06)
[2019-04-01] VITALS (8 sets, daily range): BP systolic 91–108; BP diastolic 49–54; PULSE 72–82; RESP 18–21
[2019-04-01] MEDS: ALBUTEROL/IPRATROPIUM (NEB) 3 ML AMP HHN SCH ×4 (01:22→19:30)
[2019-04-01] MEDS: PANTOPRAZOLE (EC) 40 MG TAB PO SCH ×2 (05:51→18:03)
[2019-04-01] MEDS: METHYLPREDNISOLONE 40 MG INJ IV SCH (08:03)
[2019-04-01] MEDS: METHADONE 10 MG TAB PO SCH (08:04)
[2019-04-01] MEDS: LUBIPROSTONE 24 MCG CAP PO SCH ×2 (08:04→21:48)
[2019-04-01] MEDS: POLYETHYLENE GLYCOL 17 GM PACKET PO SCH (08:04)
[2019-04-01] MEDS: COLLAGENASE 5 GM (UD JAR) TOP SCH (08:05)
[2019-04-01] MEDS: METOPROLOL (XL) 25 MG TAB PO SCH ×2 (08:05→21:48)
[2019-04-01] MEDS: SILVER SULFADIAZINE 1% 25 GM CR TOP SCH (08:06)
[2019-04-01] MEDS: NICOTINE (21 MG/24 HR) PATCH TRANSDERM SCH (08:06)
[2019-04-01] MEDS: ACETAZOLAMIDE 500 MG INJ IV SCH (09:00)
[2019-04-01] MEDS: morphine 2 MG INJ IV PRN (10:14)
[2019-04-01] MEDS: CEFTRIAXONE 1 GM/50 ML (PMX) 50 ML IVPB SCH (12:29)
[2019-04-01] MEDS: ALBUTEROL 0.083% (NEB) 2.5 MG/3 ML AMP HHN PRN (17:27)
[2019-04-02] MEDS: ALBUTEROL/IPRATROPIUM (NEB) 3 ML AMP HHN SCH ×4 (03:29→20:04)
[2019-04-02 03:40] VITALS: BP 102/50; PULSE 76; RESP 18
[2019-04-02] MEDS: PANTOPRAZOLE (EC) 40 MG TAB PO SCH ×2 (05:49→17:52)
[2019-04-02] MEDS: METHYLPREDNISOLONE 40 MG INJ IV SCH (08:56)
[2019-04-02] MEDS: ACETAZOLAMIDE 500 MG INJ IV SCH (08:56)
[2019-04-02] MEDS: LUBIPROSTONE 24 MCG CAP PO SCH ×2 (08:57→21:00)
[2019-04-02] MEDS: METOPROLOL (XL) 25 MG TAB PO SCH ×2 (08:57→21:00)
[2019-04-02] MEDS: COLLAGENASE 5 GM (UD JAR) TOP SCH (08:58)
[2019-04-02] MEDS: POLYETHYLENE GLYCOL 17 GM PACKET PO SCH (08:58)
[2019-04-02] MEDS: SILVER SULFADIAZINE 1% 25 GM CR TOP SCH (09:00)
[2019-04-02] MEDS: METHADONE 10 MG TAB PO SCH (09:02)
[2019-04-02] MEDS: NICOTINE (21 MG/24 HR) PATCH TRANSDERM SCH (09:02)
[2019-04-02 11:32] VITALS: BP 92/51; PULSE 77; RESP 19
[2019-04-02] MEDS ORDERED: POTASSIUM CHLORIDE (SR) 20 MEQ TAB PO STA (11:33)
[2019-04-02] MEDS: CEFTRIAXONE 1 GM/50 ML (PMX) 50 ML IVPB SCH (11:54)
[2019-04-02] MEDS ORDERED: MAGNESIUM SULFATE 1 GM/D5W 100 ML IVPB ONE (12:00)
[2019-04-02 15:51] VITALS: BP 102/52; PULSE 82; RESP 19
[2019-04-02 19:15] VITALS: BP 109/57; PULSE 79; RESP 18
[2019-04-03] VITALS (7 sets, daily range): BP systolic 98–131; BP diastolic 51–59; PULSE 72–94; RESP 16–22
[2019-04-03] MEDS: ALBUTEROL/IPRATROPIUM (NEB) 3 ML AMP HHN SCH ×4 (01:44→19:32)
[2019-04-03] MEDS: PANTOPRAZOLE (EC) 40 MG TAB PO SCH ×2 (06:56→18:54)
[2019-04-03] MEDS: METOPROLOL (XL) 25 MG TAB PO SCH ×2 (09:00→21:08)
[2019-04-03] MEDS: ACETAZOLAMIDE 500 MG INJ IV SCH (09:24)
[2019-04-03] MEDS: METHYLPREDNISOLONE 40 MG INJ IV SCH (09:24)
[2019-04-03] MEDS: POLYETHYLENE GLYCOL 17 GM PACKET PO SCH (09:25)
[2019-04-03] MEDS: NICOTINE (21 MG/24 HR) PATCH TRANSDERM SCH (09:25)
[2019-04-03] MEDS: COLLAGENASE 5 GM (UD JAR) TOP SCH (09:25)
[2019-04-03] MEDS: SILVER SULFADIAZINE 1% 25 GM CR TOP SCH (09:28)
[2019-04-03] MEDS: LUBIPROSTONE 24 MCG CAP PO SCH ×2 (09:28→21:08)
[2019-04-03] MEDS: METHADONE 10 MG TAB PO SCH (09:33)
[2019-04-03] MEDS: CEFTRIAXONE 1 GM/50 ML (PMX) 50 ML IVPB SCH (11:59)
[2019-04-04] MEDS: ALBUTEROL/IPRATROPIUM (NEB) 3 ML AMP HHN SCH ×4 (01:05→20:05)
[2019-04-04 04:06] VITALS: BP 106/53; PULSE 85; RESP 18
[2019-04-04] MEDS: PANTOPRAZOLE (EC) 40 MG TAB PO SCH ×2 (05:55→18:16)
[2019-04-04 07:17] VITALS: BP 115/78; PULSE 69; RESP 18
[2019-04-04] MEDS: ACETAZOLAMIDE 500 MG INJ IV SCH (09:49)
[2019-04-04] MEDS: COLLAGENASE 5 GM (UD JAR) TOP SCH (09:49)
[2019-04-04] MEDS: LUBIPROSTONE 24 MCG CAP PO SCH ×2 (09:49→21:33)
[2019-04-04] MEDS: METHYLPREDNISOLONE 40 MG INJ IV SCH (09:49)
[2019-04-04] MEDS: POLYETHYLENE GLYCOL 17 GM PACKET PO SCH (09:49)
[2019-04-04] MEDS: METHADONE 10 MG TAB PO SCH (09:50)
[2019-04-04] MEDS: METOPROLOL (XL) 25 MG TAB PO SCH ×2 (09:51→21:34)
[2019-04-04] MEDS: SILVER SULFADIAZINE 1% 25 GM CR TOP SCH (09:52)
[2019-04-04] MEDS: NICOTINE (21 MG/24 HR) PATCH TRANSDERM SCH (09:52)
[2019-04-04 11:22] VITALS: BP 107/66; PULSE 79; RESP 19
[2019-04-04] MEDS ORDERED: SOD CHLORIDE 0.9% 250 ML IV* ONE (12:32)
[2019-04-04] MEDS: CEFTRIAXONE 1 GM/50 ML (PMX) 50 ML IVPB SCH (12:42)
[2019-04-04 15:19] VITALS: BP 113/59; PULSE 89; RESP 18
[2019-04-04 20:35] VITALS: BP 127/58; PULSE 81; RESP 18
[2019-04-04 23:44] VITALS: BP 121/56; PULSE 92; RESP 18
[2019-04-05] MEDS: ALBUTEROL/IPRATROPIUM (NEB) 3 ML AMP HHN SCH ×4 (01:01→19:49)
[2019-04-05 04:37] VITALS: BP 112/56; PULSE 84; RESP 18
[2019-04-05] MEDS: PANTOPRAZOLE (EC) 40 MG TAB PO SCH ×2 (06:07→18:00)
[2019-04-05 07:35] VITALS: BP 104/53; PULSE 79; RESP 18
[2019-04-05] MEDS: METHADONE 10 MG TAB PO SCH (09:00)
[2019-04-05] MEDS: LUBIPROSTONE 24 MCG CAP PO SCH ×2 (09:00→21:00)
[2019-04-05] MEDS: METOPROLOL (XL) 25 MG TAB PO SCH ×2 (09:00→22:55)
[2019-04-05] MEDS: POLYETHYLENE GLYCOL 17 GM PACKET PO SCH (09:00)
[2019-04-05] MEDS: SILVER SULFADIAZINE 1% 25 GM CR TOP SCH (09:00)
[2019-04-05] MEDS: morphine 2 MG INJ IV PRN (11:08)
[2019-04-05] MEDS: NICOTINE (21 MG/24 HR) PATCH TRANSDERM SCH (11:10)
[2019-04-05] MEDS: METHYLPREDNISOLONE 40 MG INJ IV SCH (11:10)
[2019-04-05] MEDS: COLLAGENASE 5 GM (UD JAR) TOP SCH (11:11)
[2019-04-05] MEDS: ACETAMINOPHEN 325 MG TAB PO PRN (13:55)
[2019-04-05] MEDS: CEFTRIAXONE 1 GM/50 ML (PMX) 50 ML IVPB SCH (13:56)
[2019-04-05 15:17] VITALS: BP 174/79; PULSE 111; RESP 20
[2019-04-05 15:40] VITALS: PULSE 98
[2019-04-05] MEDS: ALBUTEROL 0.083% (NEB) 2.5 MG/3 ML AMP HHN PRN (16:07)
[2019-04-05] MEDS ORDERED: FUROSEMIDE 40 MG INJ IV ONE (16:30)
[2019-04-05] MEDS: POTASSIUM CHLORIDE 100 ML IVPB SCH ×2 (16:51→19:00)
[2019-04-05] MEDS: FUROSEMIDE 40 MG INJ IV SCH (18:59)
[2019-04-05 20:00] VITALS: BP 138/67; PULSE 80; RESP 20
[2019-04-06] VITALS: BP 148/65; PULSE 76; RESP 18
[2019-04-06] MEDS: ALBUTEROL/IPRATROPIUM (NEB) 3 ML AMP HHN SCH ×5 (01:22→20:52)
[2019-04-06 03:59] VITALS: BP 131/60; PULSE 76; RESP 18
[2019-04-06] MEDS: PANTOPRAZOLE (EC) 40 MG TAB PO SCH ×2 (05:32→17:55)
[2019-04-06] MEDS: FUROSEMIDE 40 MG INJ IV SCH ×2 (05:33→17:56)
[2019-04-06 07:15] VITALS: BP 100/53; PULSE 76; RESP 18
[2019-04-06] MEDS ORDERED: POTASSIUM CHLORIDE (SR) 20 MEQ TAB PO STA (08:15)
[2019-04-06] MEDS: METOPROLOL (XL) 25 MG TAB PO SCH ×2 (08:40→22:02)
[2019-04-06] MEDS: LISINOPRIL 5 MG TAB PO SCH (08:41)
[2019-04-06] MEDS: LUBIPROSTONE 24 MCG CAP PO SCH ×2 (09:00→22:01)
[2019-04-06] MEDS: POLYETHYLENE GLYCOL 17 GM PACKET PO SCH (09:01)
[2019-04-06] MEDS: COLLAGENASE 5 GM (UD JAR) TOP SCH (09:01)
[2019-04-06] MEDS: METHADONE 10 MG TAB PO SCH (09:01)
[2019-04-06] MEDS: SILVER SULFADIAZINE 1% 25 GM CR TOP SCH (09:02)
[2019-04-06] MEDS: NICOTINE (21 MG/24 HR) PATCH TRANSDERM SCH (09:02)
[2019-04-06] MEDS: METHYLPREDNISOLONE 40 MG INJ IV SCH (09:03)
[2019-04-06 11:20] VITALS: BP 111/51; PULSE 60; RESP 18
[2019-04-06] MEDS: CEFTRIAXONE 1 GM/50 ML (PMX) 50 ML IVPB SCH (12:20)
[2019-04-06 15:05] VITALS: BP 105/55; PULSE 78; RESP 18
[2019-04-06 20:00] VITALS: BP 139/64; PULSE 79; RESP 19
[2019-04-07 00:49] VITALS: BP 103/51; PULSE 77; RESP 18
[2019-04-07] MEDS: ALBUTEROL/IPRATROPIUM (NEB) 3 ML AMP HHN SCH ×4 (02:00→19:27)
[2019-04-07 04:00] VITALS: BP 125/60; PULSE 87; RESP 18
[2019-04-07] MEDS: FUROSEMIDE 40 MG INJ IV SCH ×2 (06:09→17:23)
[2019-04-07] MEDS: PANTOPRAZOLE (EC) 40 MG TAB PO SCH ×2 (06:09→17:23)
[2019-04-07 07:17] VITALS: BP 111/56; PULSE 87; RESP 20
[2019-04-07] MEDS: POLYETHYLENE GLYCOL 17 GM PACKET PO SCH (08:57)
[2019-04-07] MEDS: LUBIPROSTONE 24 MCG CAP PO SCH ×2 (08:58→21:02)
[2019-04-07] MEDS: METHADONE 10 MG TAB PO SCH (08:59)
[2019-04-07] MEDS: LISINOPRIL 5 MG TAB PO SCH (09:00)
[2019-04-07] MEDS: METOPROLOL (XL) 25 MG TAB PO SCH ×2 (09:02→21:02)
[2019-04-07] MEDS: SPIRONOLACTONE 25 MG TAB PO SCH (09:02)
[2019-04-07] MEDS: NICOTINE (21 MG/24 HR) PATCH TRANSDERM SCH (09:02)
[2019-04-07] MEDS: COLLAGENASE 5 GM (UD JAR) TOP SCH (09:03)
[2019-04-07] MEDS: SILVER SULFADIAZINE 1% 25 GM CR TOP SCH (09:03)
[2019-04-07] MEDS: METHYLPREDNISOLONE 40 MG INJ IV SCH (09:04)
[2019-04-07 11:06] VITALS: BP 99/53; PULSE 85; RESP 18
[2019-04-07] MEDS: CEFTRIAXONE 1 GM/50 ML (PMX) 50 ML IVPB SCH (11:35)
[2019-04-07] MEDS ORDERED: MAGNESIUM SULFATE 2 GM/50 ML 50 ML IVPB ONE (15:00)
[2019-04-07] MEDS ORDERED: POTASSIUM CHLORIDE 20 MEQ POWDER FOR ORAL SOLN PO ONE (15:00)
[2019-04-07 15:08] VITALS: BP 123/58; PULSE 84; RESP 20
[2019-04-07 19:13] VITALS: BP 109/56; PULSE 74; RESP 17
[2019-04-08] VITALS: BP 122/60; PULSE 77; RESP 18
[2019-04-08] MEDS: ALBUTEROL/IPRATROPIUM (NEB) 3 ML AMP HHN SCH ×4 (01:22→19:26)
[2019-04-08 02:00] VITALS: BP 104/53; PULSE 74; RESP 18
[2019-04-08] MEDS: PANTOPRAZOLE (EC) 40 MG TAB PO SCH ×2 (05:39→17:29)
[2019-04-08] MEDS: FUROSEMIDE 40 MG INJ IV SCH ×2 (05:40→17:30)
[2019-04-08 08:11] VITALS: BP 98/54; PULSE 78; RESP 20
[2019-04-08] MEDS: METOPROLOL (XL) 25 MG TAB PO SCH ×2 (08:57→21:00)
[2019-04-08] MEDS: LISINOPRIL 5 MG TAB PO SCH (08:58)
[2019-04-08] MEDS: NICOTINE (21 MG/24 HR) PATCH TRANSDERM SCH (08:58)
[2019-04-08] MEDS: SPIRONOLACTONE 25 MG TAB PO SCH (08:58)
[2019-04-08] MEDS: METHYLPREDNISOLONE 40 MG INJ IV SCH (08:59)
[2019-04-08] MEDS: LUBIPROSTONE 24 MCG CAP PO SCH ×2 (08:59→21:05)
[2019-04-08] MEDS: POLYETHYLENE GLYCOL 17 GM PACKET PO SCH (08:59)
[2019-04-08] MEDS: METHADONE 10 MG TAB PO SCH (08:59)
[2019-04-08] MEDS: COLLAGENASE 5 GM (UD JAR) TOP SCH (08:59)
[2019-04-08] MEDS: SILVER SULFADIAZINE 1% 25 GM CR TOP SCH ×2 (09:00→17:29)
[2019-04-08 11:30] VITALS: BP 96/51; PULSE 76; RESP 20
[2019-04-08] MEDS: CEFTRIAXONE 1 GM/50 ML (PMX) 50 ML IVPB SCH (12:01)
[2019-04-08 14:22] VITALS: BP 111/54; PULSE 81; RESP 20
[2019-04-08 20:00] VITALS: BP 104/51; PULSE 81; RESP 19
[2019-04-09] MEDS: ALBUTEROL/IPRATROPIUM (NEB) 3 ML AMP HHN SCH ×4 (02:00→19:33)
[2019-04-09] MEDS: FUROSEMIDE 40 MG INJ IV SCH ×2 (05:25→17:48)
[2019-04-09] MEDS: PANTOPRAZOLE (EC) 40 MG TAB PO SCH ×2 (05:29→17:48)
[2019-04-09] MEDS ORDERED: POTASSIUM CHLORIDE (SR) 20 MEQ TAB PO STA (07:04)
[2019-04-09 07:30] VITALS: BP 110/55; PULSE 102; RESP 24
[2019-04-09 08:06] VITALS: PULSE 89
[2019-04-09] MEDS: METOPROLOL (XL) 25 MG TAB PO SCH ×2 (09:00→20:22)
[2019-04-09] MEDS: LISINOPRIL 5 MG TAB PO SCH (09:00)
[2019-04-09] MEDS: POLYETHYLENE GLYCOL 17 GM PACKET PO SCH (09:00)
[2019-04-09] MEDS: METHADONE 10 MG TAB PO SCH (09:14)
[2019-04-09] MEDS: LUBIPROSTONE 24 MCG CAP PO SCH ×2 (09:14→20:22)
[2019-04-09] MEDS: SPIRONOLACTONE 25 MG TAB PO SCH (09:14)
[2019-04-09] MEDS: NICOTINE (21 MG/24 HR) PATCH TRANSDERM SCH (09:15)
[2019-04-09] MEDS: COLLAGENASE 5 GM (UD JAR) TOP SCH (09:15)
[2019-04-09] MEDS: METHYLPREDNISOLONE 40 MG INJ IV SCH (09:22)
[2019-04-09] MEDS: SILVER SULFADIAZINE 1% 25 GM CR TOP SCH (09:22)
[2019-04-09 09:44] VITALS: BP 98/56; PULSE 98
[2019-04-09] MEDS: CEFTRIAXONE 1 GM/50 ML (PMX) 50 ML IVPB SCH (12:34)
[2019-04-09 14:40] VITALS: BP 118/58; PULSE 82; RESP 2
[2019-04-09 15:36] VITALS: RESP 20
[2019-04-09 20:00] VITALS: BP 98/54; PULSE 83; RESP 19
[2019-04-10] MEDS: ALBUTEROL/IPRATROPIUM (NEB) 3 ML AMP HHN SCH ×4 (01:34→20:00)
[2019-04-10 02:00] VITALS: BP 99/53; PULSE 79; RESP 18
[2019-04-10] MEDS: PANTOPRAZOLE (EC) 40 MG TAB PO SCH ×2 (06:00→18:02)
[2019-04-10] MEDS: FUROSEMIDE 40 MG INJ IV SCH ×2 (06:07→18:00)
[2019-04-10] MEDS ORDERED: POTASSIUM CHLORIDE (SR) 20 MEQ TAB PO STA (08:35)
[2019-04-10 08:54] VITALS: BP 98/55; PULSE 71; RESP 19
[2019-04-10] MEDS: METOPROLOL (XL) 25 MG TAB PO SCH ×2 (09:00→21:00)
[2019-04-10] MEDS: SILVER SULFADIAZINE 1% 25 GM CR TOP SCH (09:00)
[2019-04-10] MEDS: METHYLPREDNISOLONE 40 MG INJ IV SCH (09:00)
[2019-04-10] MEDS: POLYETHYLENE GLYCOL 17 GM PACKET PO SCH (09:00)
[2019-04-10] MEDS: LISINOPRIL 5 MG TAB PO SCH (09:00)
[2019-04-10] MEDS: SPIRONOLACTONE 25 MG TAB PO SCH (09:59)
[2019-04-10] MEDS: NICOTINE (21 MG/24 HR) PATCH TRANSDERM SCH (10:02)
[2019-04-10] MEDS: METHADONE 10 MG TAB PO SCH (10:03)
[2019-04-10] MEDS: LUBIPROSTONE 24 MCG CAP PO SCH ×2 (10:03→21:00)
[2019-04-10] MEDS: COLLAGENASE 5 GM (UD JAR) TOP SCH (10:04)
[2019-04-10] MEDS: CEFTRIAXONE 1 GM/50 ML (PMX) 50 ML IVPB SCH (12:00)
[2019-04-10 14:00] VITALS: BP 93/41; PULSE 78; RESP 19
[2019-04-10 20:16] VITALS: BP 113/53; PULSE 82; RESP 18
[2019-04-11] MEDS: ALBUTEROL/IPRATROPIUM (NEB) 3 ML AMP HHN SCH ×4 (01:53→20:00)
[2019-04-11 03:28] VITALS: BP 116/57; PULSE 102; RESP 19
[2019-04-11] MEDS: PANTOPRAZOLE (EC) 40 MG TAB PO SCH ×2 (05:25→17:14)
[2019-04-11] MEDS: FUROSEMIDE 40 MG INJ IV SCH (05:26)
[2019-04-11] MEDS ORDERED: POTASSIUM CHLORIDE (SR) 20 MEQ TAB PO STA (07:51)
[2019-04-11 08:28] VITALS: BP 106/51; PULSE 84; RESP 19
[2019-04-11] MEDS: LISINOPRIL 5 MG TAB PO SCH (08:37)
[2019-04-11] MEDS: SILVER SULFADIAZINE 1% 25 GM CR TOP SCH (08:54)
[2019-04-11] MEDS: POLYETHYLENE GLYCOL 17 GM PACKET PO SCH (08:54)
[2019-04-11] MEDS: COLLAGENASE 5 GM (UD JAR) TOP SCH (08:54)
[2019-04-11] MEDS: SPIRONOLACTONE 25 MG TAB PO SCH (08:55)
[2019-04-11] MEDS: LUBIPROSTONE 24 MCG CAP PO SCH ×2 (08:55→20:08)
[2019-04-11] MEDS: METOPROLOL (XL) 25 MG TAB PO SCH ×2 (08:55→20:12)
[2019-04-11] MEDS: BUMETANIDE 1 MG TAB PO SCH (08:55)
[2019-04-11] MEDS: METHYLPREDNISOLONE 40 MG INJ IV SCH (08:56)
[2019-04-11] MEDS: NICOTINE (21 MG/24 HR) PATCH TRANSDERM SCH (08:56)
[2019-04-11] MEDS: METHADONE 10 MG TAB PO SCH (08:58)
[2019-04-11] MEDS: CEFTRIAXONE 1 GM/50 ML (PMX) 50 ML IVPB SCH (11:12)
[2019-04-11 14:00] VITALS: BP 114/55; PULSE 85; RESP 19
[2019-04-11 20:03] VITALS: BP 108/51; PULSE 86; RESP 18
[2019-04-11] MEDS: ACETAMINOPHEN 325 MG TAB PO PRN (20:10)
[2019-04-12 02:00] VITALS: BP 100/53; PULSE 85; RESP 17
[2019-04-12] MEDS: ALBUTEROL/IPRATROPIUM (NEB) 3 ML AMP HHN SCH ×4 (02:00→19:54)
[2019-04-12] MEDS: PANTOPRAZOLE (EC) 40 MG TAB PO SCH ×2 (05:33→17:08)
[2019-04-12] MEDS ORDERED: POTASSIUM CHLORIDE (SR) 20 MEQ TAB PO STA (06:35)
[2019-04-12 08:11] VITALS: BP 96/54; PULSE 65; RESP 16
[2019-04-12] MEDS: SPIRONOLACTONE 25 MG TAB PO SCH (08:45)
[2019-04-12] MEDS: METHYLPREDNISOLONE 40 MG INJ IV SCH (08:45)
[2019-04-12] MEDS: LUBIPROSTONE 24 MCG CAP PO SCH ×2 (08:46→21:00)
[2019-04-12] MEDS: METHADONE 10 MG TAB PO SCH (08:46)
[2019-04-12] MEDS: COLLAGENASE 5 GM (UD JAR) TOP SCH (08:46)
[2019-04-12] MEDS: BUMETANIDE 1 MG TAB PO SCH (08:47)
[2019-04-12] MEDS: POLYETHYLENE GLYCOL 17 GM PACKET PO SCH (08:47)
[2019-04-12] MEDS: LISINOPRIL 5 MG TAB PO SCH (08:47)
[2019-04-12] MEDS: METOPROLOL (XL) 25 MG TAB PO SCH ×2 (08:47→20:13)
[2019-04-12] MEDS: SILVER SULFADIAZINE 1% 25 GM CR TOP SCH (08:48)
[2019-04-12] MEDS: NICOTINE (21 MG/24 HR) PATCH TRANSDERM SCH (08:48)
[2019-04-12] MEDS: CEFTRIAXONE 1 GM/50 ML (PMX) 50 ML IVPB SCH (11:27)
[2019-04-12 14:00] VITALS: BP 103/54; PULSE 77; RESP 18
[2019-04-12] MEDS: LORAZEPAM 0.5 MG TAB PO PRN (14:54)
[2019-04-12] MEDS ORDERED: LORAZEPAM 2 MG INJ IV ONE (15:30)
[2019-04-12] MEDS: morphine 2 MG INJ IV PRN (20:13)
[2019-04-12 20:28] VITALS: BP 111/55; PULSE 80; RESP 20
[2019-04-13] MEDS: ALBUTEROL/IPRATROPIUM (NEB) 3 ML AMP HHN SCH ×4 (02:00→21:05)
[2019-04-13 02:47] VITALS: BP 114/52; PULSE 87; RESP 18
[2019-04-13] MEDS: PANTOPRAZOLE (EC) 40 MG TAB PO SCH ×2 (05:09→17:36)
[2019-04-13 07:58] VITALS: BP 98/54; PULSE 79; RESP 18
[2019-04-13] MEDS: METHYLPREDNISOLONE 40 MG INJ IV SCH (08:54)
[2019-04-13] MEDS: NICOTINE (21 MG/24 HR) PATCH TRANSDERM SCH (08:55)
[2019-04-13] MEDS: POLYETHYLENE GLYCOL 17 GM PACKET PO SCH ×2 (08:55→09:00)
[2019-04-13] MEDS: COLLAGENASE 5 GM (UD JAR) TOP SCH (08:55)
[2019-04-13] MEDS: NEUTRA-PHOS 250 MG PACKET PO SCH ×3 (08:55→20:18)
[2019-04-13] MEDS: LUBIPROSTONE 24 MCG CAP PO SCH ×3 (08:56→20:18)
[2019-04-13] MEDS: BUMETANIDE 1 MG TAB PO SCH ×2 (08:56→09:00)
[2019-04-13] MEDS: SPIRONOLACTONE 25 MG TAB PO SCH (08:56)
[2019-04-13] MEDS: METOPROLOL (XL) 25 MG TAB PO SCH ×2 (08:57→20:18)
[2019-04-13] MEDS: LISINOPRIL 5 MG TAB PO SCH (08:58)
[2019-04-13] MEDS ORDERED: MAGNESIUM SULFATE 2 GM/50 ML 50 ML IVPB ONE (09:00)
[2019-04-13] MEDS: SILVER SULFADIAZINE 1% 25 GM CR TOP SCH (09:00)
[2019-04-13] MEDS: METHADONE 10 MG TAB PO SCH (09:34)
[2019-04-13] MEDS: morphine 2 MG INJ IV PRN (11:55)
[2019-04-13] MEDS: CEFTRIAXONE 1 GM/50 ML (PMX) 50 ML IVPB SCH (11:55)
[2019-04-13 14:34] VITALS: BP 108/57; PULSE 91
[2019-04-13] MEDS: LORAZEPAM 0.5 MG TAB PO PRN ×2 (15:07→22:58)
[2019-04-13 19:51] VITALS: BP 113/56; PULSE 85; RESP 20
[2019-04-14] MEDS: ALBUTEROL/IPRATROPIUM (NEB) 3 ML AMP HHN SCH ×4 (01:38→19:46)
[2019-04-14 01:42] VITALS: BP 112/59; PULSE 87; RESP 20
[2019-04-14] MEDS: PANTOPRAZOLE (EC) 40 MG TAB PO SCH ×2 (06:27→17:40)
[2019-04-14 08:00] VITALS: BP 134/60; PULSE 76; RESP 20
[2019-04-14] MEDS: METHYLPREDNISOLONE 40 MG INJ IV SCH (09:00)
[2019-04-14] MEDS: LUBIPROSTONE 24 MCG CAP PO SCH ×2 (09:00→20:37)
[2019-04-14] MEDS: POLYETHYLENE GLYCOL 17 GM PACKET PO SCH (09:00)
[2019-04-14] MEDS: BUMETANIDE 1 MG TAB PO SCH (09:00)
[2019-04-14] MEDS: NEUTRA-PHOS 250 MG PACKET PO SCH ×2 (10:09→20:38)
[2019-04-14] MEDS: METHADONE 10 MG TAB PO SCH (10:11)
[2019-04-14] MEDS: SPIRONOLACTONE 25 MG TAB PO SCH (10:12)
[2019-04-14] MEDS: ALBUTEROL 0.083% (NEB) 2.5 MG/3 ML AMP HHN PRN (10:12)
[2019-04-14] MEDS: LISINOPRIL 5 MG TAB PO SCH (10:15)
[2019-04-14] MEDS: METOPROLOL (XL) 25 MG TAB PO SCH ×2 (10:16→20:38)
[2019-04-14] MEDS: NICOTINE (21 MG/24 HR) PATCH TRANSDERM SCH (10:18)
[2019-04-14] MEDS: CEFTRIAXONE 1 GM/50 ML (PMX) 50 ML IVPB SCH (12:00)
[2019-04-14 14:00] VITALS: BP 111/53; PULSE 88; RESP 20
[2019-04-14] MEDS: SILVER SULFADIAZINE 1% 25 GM CR TOP SCH (14:40)
[2019-04-14] MEDS: COLLAGENASE 5 GM (UD JAR) TOP SCH (14:40)
[2019-04-14] MEDS: CEFTRIAXONE 1 GM INJ IM SCH (18:28)
[2019-04-14 20:00] VITALS: BP 111/59; PULSE 86; RESP 19
[2019-04-15] MEDS: ALBUTEROL/IPRATROPIUM (NEB) 3 ML AMP HHN SCH ×4 (00:56→20:12)
[2019-04-15 02:00] VITALS: BP 106/56; PULSE 77; RESP 18
[2019-04-15 04:00] VITALS: BP 106/56; PULSE 77; RESP 19
[2019-04-15] MEDS: PANTOPRAZOLE (EC) 40 MG TAB PO SCH ×2 (06:00→17:54)
[2019-04-15 08:29] VITALS: BP 117/61; PULSE 46; RESP 20
[2019-04-15] MEDS: BUMETANIDE 1 MG TAB PO SCH (08:32)
[2019-04-15] MEDS: SILVER SULFADIAZINE 1% 25 GM CR TOP SCH (08:32)
[2019-04-15] MEDS: LUBIPROSTONE 24 MCG CAP PO SCH ×2 (08:32→21:00)
[2019-04-15] MEDS: NICOTINE (21 MG/24 HR) PATCH TRANSDERM SCH (08:33)
[2019-04-15] MEDS: SPIRONOLACTONE 25 MG TAB PO SCH (08:33)
[2019-04-15] MEDS: METHADONE 10 MG TAB PO SCH (08:33)
[2019-04-15] MEDS: predniSONE 20 MG TAB PO SCH (08:33)
[2019-04-15] MEDS: NEUTRA-PHOS 250 MG PACKET PO SCH ×2 (08:33→21:00)
[2019-04-15] MEDS: POLYETHYLENE GLYCOL 17 GM PACKET PO SCH (08:34)
[2019-04-15] MEDS: METOPROLOL (XL) 25 MG TAB PO SCH ×2 (08:34→21:22)
[2019-04-15] MEDS: LISINOPRIL 5 MG TAB PO SCH (08:34)
[2019-04-15] MEDS: COLLAGENASE 5 GM (UD JAR) TOP SCH (08:36)
[2019-04-15 14:00] VITALS: BP 96/51; PULSE 77; RESP 19
[2019-04-15 20:00] VITALS: BP 123/55; PULSE 74; RESP 18
[2019-04-15 22:00] VITALS: BP 123/57; PULSE 80; RESP 17
[2019-04-15] MEDS: CEFTRIAXONE 1 GM INJ IM SCH (23:01)
[2019-04-16] MEDS: ALBUTEROL/IPRATROPIUM (NEB) 3 ML AMP HHN SCH ×4 (01:26→20:31)
[2019-04-16 02:00] VITALS: BP 123/57; PULSE 80; RESP 17
[2019-04-16] MEDS: PANTOPRAZOLE (EC) 40 MG TAB PO SCH ×2 (05:41→18:01)
[2019-04-16 08:08] VITALS: BP 107/58; PULSE 75; RESP 18
[2019-04-16] MEDS: METHADONE 10 MG TAB PO SCH (08:30)
[2019-04-16] MEDS: NICOTINE (21 MG/24 HR) PATCH TRANSDERM SCH (08:32)
[2019-04-16] MEDS: SPIRONOLACTONE 25 MG TAB PO SCH (08:32)
[2019-04-16] MEDS: predniSONE 20 MG TAB PO SCH (08:32)
[2019-04-16] MEDS: LUBIPROSTONE 24 MCG CAP PO SCH ×2 (08:33→20:44)
[2019-04-16] MEDS: BUMETANIDE 1 MG TAB PO SCH (08:33)
[2019-04-16] MEDS: METOPROLOL (XL) 25 MG TAB PO SCH ×2 (08:34→20:44)
[2019-04-16] MEDS: LISINOPRIL 5 MG TAB PO SCH (08:34)
[2019-04-16] MEDS: POLYETHYLENE GLYCOL 17 GM PACKET PO SCH ×2 (08:35→09:00)
[2019-04-16] MEDS: SILVER SULFADIAZINE 1% 25 GM CR TOP SCH (08:35)
[2019-04-16] MEDS: COLLAGENASE 5 GM (UD JAR) TOP SCH (08:35)
[2019-04-16] MEDS: NEUTRA-PHOS 250 MG PACKET PO SCH ×2 (09:00→20:44)
[2019-04-16] MEDS: CEFTRIAXONE 1 GM INJ IM SCH (18:02)
[2019-04-16 20:00] VITALS: BP 128/58; PULSE 71; RESP 18
[2019-04-17] MEDS: ALBUTEROL/IPRATROPIUM (NEB) 3 ML AMP HHN SCH ×4 (01:53→20:12)
[2019-04-17 02:00] VITALS: BP 108/52; PULSE 67; RESP 18
[2019-04-17] MEDS: PANTOPRAZOLE (EC) 40 MG TAB PO SCH ×2 (05:42→18:32)
[2019-04-17] MEDS: LISINOPRIL 5 MG TAB PO SCH (09:00)
[2019-04-17] MEDS: SILVER SULFADIAZINE 1% 25 GM CR TOP SCH ×2 (09:00→13:55)
[2019-04-17] MEDS: METOPROLOL (XL) 25 MG TAB PO SCH ×2 (09:00→20:42)
[2019-04-17] MEDS: COLLAGENASE 5 GM (UD JAR) TOP SCH ×2 (09:00→13:55)
[2019-04-17] MEDS: LUBIPROSTONE 24 MCG CAP PO SCH ×2 (09:26→20:46)
[2019-04-17] MEDS: predniSONE 20 MG TAB PO SCH (09:27)
[2019-04-17] MEDS: NICOTINE (21 MG/24 HR) PATCH TRANSDERM SCH (09:27)
[2019-04-17] MEDS: SPIRONOLACTONE 25 MG TAB PO SCH (09:27)
[2019-04-17] MEDS: BUMETANIDE 1 MG TAB PO SCH (09:27)
[2019-04-17] MEDS: NEUTRA-PHOS 250 MG PACKET PO SCH ×2 (09:27→20:42)
[2019-04-17] MEDS: METHADONE 10 MG TAB PO SCH (09:27)
[2019-04-17 09:30] VITALS: BP 103/55; PULSE 85; RESP 17
[2019-04-17 14:32] VITALS: BP 90/72; PULSE 71; RESP 16
[2019-04-17] MEDS: CEFTRIAXONE 1 GM INJ IM SCH (17:30)
[2019-04-17 20:17] VITALS: BP 123/59; PULSE 85; RESP 18
[2019-04-17] MEDS: LORAZEPAM 0.5 MG TAB PO PRN (23:33)
[2019-04-18 02:00] VITALS: BP 102/50; PULSE 78; RESP 20
[2019-04-18] MEDS: ALBUTEROL/IPRATROPIUM (NEB) 3 ML AMP HHN SCH ×5 (02:15→19:41)
[2019-04-18] MEDS: PANTOPRAZOLE (EC) 40 MG TAB PO SCH ×2 (06:00→17:11)
[2019-04-18] MEDS: NICOTINE (21 MG/24 HR) PATCH TRANSDERM SCH (10:12)
[2019-04-18 10:14] VITALS: BP 96/45; PULSE 80; RESP 16
[2019-04-18] MEDS: METOPROLOL (XL) 25 MG TAB PO SCH ×2 (10:15→21:00)
[2019-04-18] MEDS: POLYETHYLENE GLYCOL 17 GM PACKET PO SCH (10:15)
[2019-04-18] MEDS: METHADONE 10 MG TAB PO SCH (10:15)
[2019-04-18] MEDS: LISINOPRIL 5 MG TAB PO SCH (10:15)
[2019-04-18] MEDS: SPIRONOLACTONE 25 MG TAB PO SCH (10:22)
[2019-04-18] MEDS: LUBIPROSTONE 24 MCG CAP PO SCH ×2 (10:22→21:00)
[2019-04-18] MEDS: predniSONE 20 MG TAB PO SCH (10:22)
[2019-04-18] MEDS: NEUTRA-PHOS 250 MG PACKET PO SCH ×2 (10:22→21:00)
[2019-04-18] MEDS: COLLAGENASE 5 GM (UD JAR) TOP SCH ×2 (10:22→16:01)
[2019-04-18] MEDS: SILVER SULFADIAZINE 1% 25 GM CR TOP SCH ×2 (10:23→16:01)
[2019-04-18] MEDS: BUMETANIDE 1 MG TAB PO SCH (10:23)
[2019-04-18 15:59] VITALS: BP 100/51; PULSE 85; RESP 18
[2019-04-18 20:09] VITALS: BP 103/52; PULSE 78; RESP 20
[2019-04-19] MEDS: ALBUTEROL/IPRATROPIUM (NEB) 3 ML AMP HHN SCH ×4 (01:10→19:28)
[2019-04-19 02:40] VITALS: BP 98/53; PULSE 78; RESP 18
[2019-04-19] MEDS: COLLAGENASE 5 GM (UD JAR) TOP SCH ×2 (02:48→09:00)
[2019-04-19] MEDS: SILVER SULFADIAZINE 1% 25 GM CR TOP SCH ×2 (02:48→09:00)
[2019-04-19] MEDS: PANTOPRAZOLE (EC) 40 MG TAB PO SCH ×2 (06:00→17:31)
[2019-04-19 07:52] VITALS: BP 99/58; PULSE 64; RESP 17
[2019-04-19] MEDS: POLYETHYLENE GLYCOL 17 GM PACKET PO SCH (09:00)
[2019-04-19] MEDS: SPIRONOLACTONE 25 MG TAB PO SCH (09:00)
[2019-04-19] MEDS: LUBIPROSTONE 24 MCG CAP PO SCH ×2 (09:00→20:26)
[2019-04-19] MEDS: BUMETANIDE 1 MG TAB PO SCH (09:02)
[2019-04-19] MEDS: METHADONE 10 MG TAB PO SCH (09:02)
[2019-04-19] MEDS: METOPROLOL (XL) 25 MG TAB PO SCH ×2 (09:04→20:28)
[2019-04-19] MEDS: LISINOPRIL 5 MG TAB PO SCH (09:04)
[2019-04-19] MEDS: predniSONE 20 MG TAB PO SCH (09:05)
[2019-04-19] MEDS: NEUTRA-PHOS 250 MG PACKET PO SCH ×2 (09:05→20:28)
[2019-04-19] MEDS: NICOTINE (21 MG/24 HR) PATCH TRANSDERM SCH (09:06)
[2019-04-19 14:00] VITALS: BP 98/59; PULSE 65; RESP 21
[2019-04-19 20:29] VITALS: BP 119/56; PULSE 80; RESP 20
[2019-04-20] MEDS: ALBUTEROL/IPRATROPIUM (NEB) 3 ML AMP HHN SCH (01:24)
[2019-04-20 08:22] VITALS: BP 92/53; PULSE 79; RESP 16
[2019-04-20] MEDS: PANTOPRAZOLE (EC) 40 MG TAB PO SCH ×2 (08:30→18:00)
[2019-04-20] MEDS: POLYETHYLENE GLYCOL 17 GM PACKET PO SCH (09:00)
[2019-04-20] MEDS: LISINOPRIL 5 MG TAB PO SCH (09:00)
[2019-04-20] MEDS: METOPROLOL (XL) 25 MG TAB PO SCH ×2 (09:00→20:51)
[2019-04-20] MEDS: SPIRONOLACTONE 25 MG TAB PO SCH (09:00)
[2019-04-20] MEDS: METHADONE 10 MG TAB PO SCH (09:53)
[2019-04-20] MEDS: predniSONE 20 MG TAB PO SCH (09:53)
[2019-04-20] MEDS: BUMETANIDE 1 MG TAB PO SCH (09:55)
[2019-04-20] MEDS: LUBIPROSTONE 24 MCG CAP PO SCH ×2 (09:56→20:51)
[2019-04-20] MEDS: COLLAGENASE 5 GM (UD JAR) TOP SCH (09:57)
[2019-04-20] MEDS: SILVER SULFADIAZINE 1% 25 GM CR TOP SCH (09:57)
[2019-04-20] MEDS: NEUTRA-PHOS 250 MG PACKET PO SCH ×2 (09:57→20:51)
[2019-04-20] MEDS: NICOTINE (21 MG/24 HR) PATCH TRANSDERM SCH (10:03)
[2019-04-20 14:00] VITALS: BP 98/56; PULSE 76; RESP 17
[2019-04-20 20:00] VITALS: BP 109/52; PULSE 72; RESP 19
[2019-04-21 02:00] VITALS: BP 100/53; PULSE 71; RESP 18
[2019-04-21] MEDS: PANTOPRAZOLE (EC) 40 MG TAB PO SCH (05:41)
[2019-04-21 08:00] VITALS: BP 100/52; PULSE 70; RESP 18
[2019-04-21] MEDS: LISINOPRIL 5 MG TAB PO SCH (09:00)
[2019-04-21] MEDS: LUBIPROSTONE 24 MCG CAP PO SCH (09:00)
[2019-04-21] MEDS: METOPROLOL (XL) 25 MG TAB PO SCH (09:00)
[2019-04-21] MEDS: POLYETHYLENE GLYCOL 17 GM PACKET PO SCH (09:00)
[2019-04-21] MEDS: SPIRONOLACTONE 25 MG TAB PO SCH (09:19)
[2019-04-21] MEDS: predniSONE 20 MG TAB PO SCH (09:19)
[2019-04-21] MEDS: BUMETANIDE 1 MG TAB PO SCH (09:20)
[2019-04-21] MEDS: METHADONE 10 MG TAB PO SCH (09:20)
[2019-04-21] MEDS: COLLAGENASE 5 GM (UD JAR) TOP SCH (09:20)
[2019-04-21] MEDS: NEUTRA-PHOS 250 MG PACKET PO SCH (09:21)
[2019-04-21] MEDS: NICOTINE (21 MG/24 HR) PATCH TRANSDERM SCH (09:21)
[2019-04-21] MEDS: SILVER SULFADIAZINE 1% 25 GM CR TOP SCH (09:22)
== END 2019-04-21 15:04 | DRG 193 ==
LOC: E/R 15:38 → TEL 20:55 → EDBEDREQSVC 20:55 → CANRESERV 21:25 → MS3 03-08 22:05 → 6WM 03-09 18:23 → ICU 03-19 04:27 → 6WM 03-23 06:00 → PP2 04-08 02:15
PROVIDERS: ADMIT Internal Medicine; ATTEND Internal Medicine
PROC: 05H333Z Insertion of Infusion Device into Right Innominate Vein, Percutaneous Approach (ICD-10-PCS; principal; 2019-03-06)
PROC: 30233N1 Transfusion of Nonautologous Red Blood Cells into Peripheral Vein, Percutaneous Approach (ICD-10-PCS; 2019-03-07)
PROC: 0DB68ZX Excision of Stomach, Via Natural or Artificial Opening Endoscopic, Diagnostic (ICD-10-PCS; 2019-03-10)
PROC: 30233M1 Transfusion of Nonautologous Plasma Cryoprecipitate into Peripheral Vein, Percutaneous Approach (ICD-10-PCS; 2019-03-17)
PROC: 06HY33Z Insertion of Infusion Device into Lower Vein, Percutaneous Approach (ICD-10-PCS; 2019-03-19)
PROC: 5A09557 Assistance with Respiratory Ventilation, Greater than 96 Consecutive Hours, Continuous Positive Airway Pressure (ICD-10-PCS; 2019-03-19)
PROC: 0W993ZZ Drainage of Right Pleural Cavity, Percutaneous Approach (ICD-10-PCS; 2019-03-23)
PROC: 30233R1 Transfusion of Nonautologous Platelets into Peripheral Vein, Percutaneous Approach (ICD-10-PCS; 2019-03-27)
DX: J18.1 Lobar pneumonia, unspecified organism (principal); I33.0 Acute and subacute infective endocarditis; I50.23 Acute on chronic systolic (congestive) heart failure; N17.0 Acute kidney failure with tubular necrosis; G92 Toxic encephalopathy; A41.9 Sepsis, unspecified organism; J96.01 Acute respiratory failure with hypoxia; J90 Pleural effusion, not elsewhere classified; J45.901 Unspecified asthma with (acute) exacerbation; I42.9 Cardiomyopathy, unspecified; T82.524A Displacement of infusion catheter, initial encounter; I82.C11 Acute embolism and thrombosis of right internal jugular vein; D68.4 Acquired coagulation factor deficiency; E87.2 Acidosis; D61.818 Other pancytopenia; J44.0 Chronic obstructive pulmonary disease with (acute) lower respiratory infection; N04.9 Nephrotic syndrome with unspecified morphologic changes; E87.3 Alkalosis; B96.89 Other specified bacterial agents as the cause of diseases classified elsewhere; B19.20 Unspecified viral hepatitis C without hepatic coma; D64.9 Anemia, unspecified; D69.59 Other secondary thrombocytopenia; E16.2 Hypoglycemia, unspecified; E87.6 Hypokalemia; E03.9 Hypothyroidism, unspecified; F17.210 Nicotine dependence, cigarettes, uncomplicated; K29.00 Acute gastritis without bleeding; K74.69 Other cirrhosis of liver; R94.5 Abnormal results of liver function studies; R60.1 Generalized edema; Z91.19 Patient's noncompliance with other medical treatment and regimen
CPT/HCPCS: 36415; 36430; 36556; 36600; 70450; 70551; 71045; 74181; 76705; 76775; 76942; 80048; 80053; 80069; 80076; 80170; 80202; 80307; 81001; 81003; 82043; 82140; 82270; 82378; 82607; 82728; 82746; 82803; 82945; 82962; 83036; 83540; 83605; 83615; 83735; 83880; 84100; 84155; 84157; 84300; 84443; 84484; 84703; 85014; 85018; 85025; 85045; 85384; 85610; 85730; 86703; 86704; 86803; 86850; 86900; 86901; 86920; 87070; 87086; 87102; 87116; 87340; 87522; 88104; 88305; 88312; 88341; 88342; 89051; 93005; 93306; 93971; 94640; 94660; 94664; 95819; 96365; 97110; 97116; 97162; 97530; C1751; C9113; J0692; J0696; J1120; J1580; J1610; J1650; J1940; J2060; J2185; J2270; J2916; J2920; J2930; J3010; J3370; J3475; J3480; J7030; J7040; J7042; J7070; J7512; P9016; P9035